=== PATIENT | male | born 1980 | race Two or more races ===

== ENCOUNTER 2017-01-19 20:30 | Emergency (ER) | payer MEDICAID ==
[~2017-01-19] VITALS: Ht 180.3 cm; Wt 81.6 kg
[2017-01-19 20:59] LABS: MEAN CORPUSCULAR HGB CONC 33.3 G/DL (32.0-36.0); MEAN CORPUSCULAR VOLUME 96 FL (80-99); MEAN PLATELET VOLUME 6.1 FL (6.5-10.1); PLATELET COUNT 327 K/UL (150-450); RED BLOOD COUNT 5.73 M/UL (4.70-6.10); RED CELL DISTRIBUTION WIDTH 11.9 % (11.6-14.8)
[2017-01-19 21:03] LABS: WHITE BLOOD COUNT 22.2 K/UL (4.8-10.8)
[2017-01-19] MEDS ORDERED: cefOXitin Sod 1 GM in D5W 55 ML IVPB STA (21:06)
[2017-01-19 21:24] LABS: ALANINE AMINOTRANSFERASE 167 U/L (12-78); ALBUMIN/GLOBULIN RATIO 1.2 (1.0-2.7); ANION GAP 16 mmol/L (5-15); ASPARTATE AMINO TRANSFERASE 90 U/L (15-37); CALCIUM 9.9 MG/DL (8.5-10.1); CARBON DIOXIDE 23 MMOL/L (21-32); CHLORIDE 101 MMOL/L (98-107); CREATININE 1.2 MG/DL (0.55-1.30); GLOMERULAR FILTRATION RATE > 60 mL/min (>60); LIPASE 106 U/L (73-393); POTASSIUM 3.8 MMOL/L (3.5-5.1); SODIUM 140 MMOL/L (136-145); TOTAL PROTEIN 9.1 G/DL (6.4-8.2)
--- NOTE | 2017-01-19 21:25 | Emergency Room Report ---
History of Present Illness General Chief Complaint: Abdominal Pain Source: Patient (SCOTT MCGEE M.D.) Present Illness HPI 36YOM with 7 months of intermittent RUQ pain Occasionally worse with ETOH Some nausea No history of gall stone disease in family Occasional drinker No other med/surgical history Progressively worse today (SCOTT MCGEE M.D.) Allergies: Coded Allergies: No Known Allergies (Unverified , 01/19/17) Patient History Past Medical History: none Past Surgical History: none Pertinent Family History: none Social History: Reports: alcohol use, Denies: smoking, drug use Immunizations: UTD Reviewed Nursing Documentation: PMH: Agreed, PSxH: Agreed (SCOTT MCGEE M.D.) Nursing Documentation-PMH Past Medical History: No Stated History (SCOTT MCGEE M.D.) Review of Systems All Other Systems: negative except mentioned in HPI (SCOTT MCGEE M.D.) Physical Exam Vital Signs Date Time Temp Pulse Resp B/P (MAP) Pulse Ox O2 Delivery O2 Flow Rate FiO2 01/19/17 20:28 98.1 140 17 160/115 98 Room Air Sp02 EP Interpretation: reviewed, normal General Appearance: normal inspection, well appearing, no apparent distress, alert, GCS 15, non-toxic, obese Head: normocephalic, atraumatic Eyes: bilateral eye PERRL, bilateral eye EOMI ENT: normal ENT inspection, hearing grossly normal, normal voice Neck: normal inspection, full range of motion, supple, no bony tend Respiratory: normal inspection, lungs clear, normal breath sounds, no respiratory distress, no retraction, no wheezing Cardiovascular #1: regular rate, rhythm, no edema Gastrointestinal: normal inspection, normal bowel sounds, soft, no guarding, no hernia, no pulsatile mass, no rebound, other - ++TTP RUQ Genitourinary: no CVA tenderness Musculoskeletal: normal inspection, back normal, normal range of motion, Wendy' s Sign negative Neurologic: normal inspection, alert, oriented x3, responsive, cancer researcher III-XII nml as tested, speech normal Psychiatric: normal inspection, judgement/insight normal, mood/affect normal Skin: normal inspection, normal color, no rash (SCOTT MCGEE M.D.) Medical Decision Making Diagnostic Impression: Primary Impression: Abdominal pain Qualified Codes: R10.11 - Right upper quadrant pain Additional Impression: Pneumonia Qualified Codes: J18.1 - Lobar pneumonia, unspecified organism ER Course RUQ pain for 7 months, worse recently ?Cholecystitis, appy Labs: Leuks >20K. AST/ALT and Alk Phos elevated. Bili normal Abx given Blood Cx pending Signed out to Dr Meza at 10pm for dispo pending CT (SCOTT MCGEE M.D.) ER Course Patient presents with fever and right upper quadrant abdominal pain. He has a white count. Patient signed out to me for pending CT scan report. CT scan x- ray showed a right lower lobe infiltrate. His pain is probably referred pain. Intra-abdominal organs unremarkable. Patient admitted. Antibiotic started. When I told patient up being admitted to the hospital, he was surprised. He said he felt better. He said he want to go home. You know he has a white count , he received antibiotics here and CT scan showed a right lower lobe infiltrate. We'll discharge with prescription for antibiotics also. (NEERU MEZA M.D.) CT/MRI/US Diagnostic Results CT/MRI/US Diagnostic Results : Imaging Test Ordered: CT abdomen and pelvis Impression Read by radiologist. Right lower lobe infiltrate. A bladder, pancreas, spleen unremarkable. Kidneys are normal. (NEERU MEZA M.D.) Last Vital Signs Date Time Temp Pulse Resp B/P (MAP) Pulse Ox O2 Delivery O2 Flow Rate FiO2 01/19/17 20:28 98.1 140 17 160/115 98 Room Air Status: improved (SCOTT MCGEE M.D.) Disposition: HOME, SELF-CARE Condition: Stable Scripts Azithromycin* (ZITHROMAX*) 250 Mg Tablet 250 MG ORAL DAILY, #6 TAB 0 Refills Take two tablets by mouth today, then take one tablet by mouth daily for four days Prov: NEERU MEZA M.D. 01/19/17 SCOTT MCGEE M.D. Jan 19, 2017 21:25 NEERU MEZA M.D. Jan 19, 2017 22:56
[2017-01-19 21:33] LABS: TOTAL CELLS COUNTED 100
[2017-01-19 21:34] LABS: EOSINOPHILS % (MANUAL) 1 % (0-3); LYMPHOCYTES % (MANUAL) 9 % (20-45); NEUTROPHILS % (MANUAL) 86 % (45-75)
[2017-01-19 21:35] LABS: BAND NEUTROPHILS % (MANUAL) 0 % (0-8); BASOPHILS % (MANUAL) 0 % (0-2); MACROCYTES OCCASIONAL; PLATELET ESTIMATE ADEQUATE; PLATELET MORPHOLOGY NORMAL
[2017-01-19] MEDS ORDERED: cefOXitin 1gm Inj ONE (21:35)
[2017-01-19] MEDS ORDERED: Azithromycin 500 MG in NS 275 ML IV ONE (23:00)
[2017-01-19] MEDS ORDERED: AZITHROMYCIN250 MG ORAL (23:07)
[2017-01-19 23:15] VITALS: BP 137/92
[2017-01-19 23:16] VITALS: BP 160/115
--- NOTE | 2017-01-20 09:20 | Diagnostic Imaging Report ---
Clinical Indication: PAIN pain, vomiting Technique: No oral contrast utilized, per emergency room physician request IV administration nonionic contrast. Venous phase spiral acquisition obtained through the abdomen and pelvis. Multiplanar reconstructions were generated. Total dose length product 1057 mGycm. CTDIvol(s) 17 mGy. Dose reduction achieved using automated exposure control Comparison: None Findings: Normal appendix. No evidence of diverticulosis or diverticulitis. There are a few left upper quadrant jejunal loops which are mildly thickwalled and distended focally. Remainder the small bowel is nondilated. No free or loculated intraperitoneal air or fluid is evident. The distal esophagus, stomach, duodenum are unremarkable. There is a tiny fat-containing umbilical hernia Liver is diffusely hypoattenuating, consistent with fatty change. Gallbladder, bile ducts, pancreas, spleen, adrenals kidneys are all unremarkable. No mesenteric or retroperitoneal mass or adenopathy. No pelvic mass or adenopathy. The included lung bases demonstrate posterior dependent atelectatic changes, on the right than on the left. Bones demonstrate degenerative spondylosis at the lumbosacral junction. Impression: Equivocally mildly thickwalled and mildly dilated left upper quadrant small bowel loops, appearance suggests focal enteritis if real. Correlate with clinical findings No acute process otherwise Fatty liver Tiny fat-containing umbilical hernia Bilateral basilar atelectasis, degenerative spondylosis incidentally noted This agrees with the preliminary interpretation provided overnight by [facility]. The CT scanner at [facility] is accredited by the [employer] and the scans are performed using protocols designed to limit radiation exposure to as low as reasonably achievable to attain images of sufficient resolution adequate for diagnostic evaluation.
== END 2017-01-19 23:17 | disposition home or self-care (01) ==
LOC: EDBD 20:30 → EMR 22:15 → EDBEDREQ 23:02 → CANBEDREQ 23:14 → EMR 23:17
DX: R10.11 Right upper quadrant pain (principal); J18.9 Pneumonia, unspecified organism; K76.0 Fatty (change of) liver, not elsewhere classified; K42.9 Umbilical hernia without obstruction or gangrene
CPT/HCPCS: 36415; 74177; 80053; 83690; 85007; 85025; 87040; 96374; 96375; 99284; J0694; J2405; Q9967; S0028